=== PATIENT | male | born 1985 | race Caucasian/White ===

== ENCOUNTER 2023-02-21 13:42 | Emergency (ER) | payer OTHER ==
[2023-02-21 13:53] VITALS: TEMP 98
[2023-02-21] MEDS ORDERED: BACITRACIN OINT 1 EACH PACKET TOPICAL ONE (14:00)
[2023-02-21] MEDS ORDERED: DIPH,PERTUS(ACELL)TETVAC-LF 0.5 ML VIAL IM ONE (14:00)
[2023-02-21] MEDS ORDERED: LIDOCAINE 1% INJ 10MG/ML (20 ML MDV) SQ ONE (14:00)
--- NOTE | 2023-02-21 14:03 | ED ---
Wound/Laceration HPI - General Chief Complaint: Wound/Laceration Stated Complaint: finger laceration left hand Time Seen by Provider: 02/21/23 13:49 Source: patient, RN notes reviewed Mode of arrival: ambulatory Limitations: no limitations - History of Present Illness Initial Comments: Patient is a 37-year-old male presenting to the ER with chief complaint of finger laceration. Patient states he was doing work on his house and accidentally cut his finger with his pocket knife. Patient denies any limited range of motion or paresthesias. Patient's tetanus status is unknown. Patient denies any other injuries. - Related Data Allergies Allergy/AdvReac Type Severity Reaction Status Date / Time No Known Allergies Allergy Verified 02/21/23 13:47 Review of Systems ROS Statement: Those systems with pertinent positive or pertinent negative responses have been documented in the HPI. ROS Other: All systems not noted in ROS Statement are negative. Past Medical History Past Medical History: No Reported History History of Any Multi-Drug Resistant Organisms: None Reported Past Surgical History: No Surgical Hx Reported Past Psychological History: No Psychological Hx Reported Smoking Status: Never smoker Past Alcohol Use History: Occasional Past Drug Use History: None Reported General Exam Limitations: no limitations General appearance: alert, in no apparent distress Respiratory exam: Present: normal lung sounds bilaterally. Absent: respiratory distress, wheezes, rales, rhonchi, stridor Cardiovascular Exam: Present: regular rate, normal rhythm, normal heart sounds. Absent: systolic murmur, diastolic murmur, rubs, gallop, clicks Neurological exam: Present: alert, oriented X3, CN II-XII intact Psychiatric exam: Present: normal affect, normal mood Skin exam: Present: other (1 cm laceration noted to left thumb. 2 cm laceration on left second finger. Full ROM of digits. sensation intact. 2+ left radial pulse.) Course Vital Signs 02/21/23 13:45 Temperature 98 F Pulse Rate 58 L Respiratory 20 Rate Blood Pressure 143/89 O2 Sat by Pulse 99 Oximetry Procedures - Laceration Laceration #1 Consent Obtained: verbal consent Indication: laceration Site: hand Size (cm): 2 Description: linear Depth: simple, single layer Anesthetic Used: lidocaine 1% Anesthesia Technique: local infiltration Amount (mls): 3 Pre-repair: wound explored, irrigated extensively, deep structures intact Type of Sutures: nylon Size of Sutures: 4-0 Number of Sutures: 4 Technique: simple, interrupted Patient Tolerated Procedure: well, no complications Laceration #2 Consent Obtained: verbal consent Indication: laceration Site: hand Size (cm): 1 Description: linear Depth: simple, single layer Anesthetic Used: lidocaine 1% Anesthesia Technique: local infiltration Amount (mls): 2 Pre-repair: wound explored, irrigated extensively, deep structures intact Type of Sutures: nylon Size of Sutures: 4-0 Number of Sutures: 1 Technique: simple, interrupted Patient Tolerated Procedure: well, no complications Medical Decision Making - Medical Decision Making Was pt. sent in by a medical professional or institution (ARABELLA Hernandez, RAIL SWITCH OPERATOR, urgent care, hospital, or fpc...) When possible be specific @ -No Did you speak to anyone other than the patient for history (EMS, parent, family, police, friend...)? What history was obtained from this source @ -No Did you review nursing and triage notes (agree or disagree)? Why? @ -I reviewed and agree with nursing and triage notes Were old charts reviewed (outside hosp., previous admission, EMS record, old EKG, old radiological studies, urgent care reports/EKG's, fpc records)? Report findings @ -No old charts were reviewed Differential Diagnosis (chest pain, altered mental status, abdominal pain women, abdominal pain men, vaginal bleeding, weakness, fever, dyspnea, syncope, headache, dizziness, GI bleed, back pain, seizure, CVA, palpatations, mental health, musculoskeletal)? @ -Laceration, abrasion, fracture, contusion EKG interpreted by me (3pts min.). @ -None X-rays interpreted by me (1pt min.). @ -Left finger x-rays are negative for acute osseous abnormalities. CT interpreted by me (1pt min.). @ -None done U/S interpreted by me (1pt. min.). @ -None done What testing was considered but not performed or refused? (CT, X-rays, U/S, labs)? Why? @ -None What meds were considered but not given or refused? Why? @ -None Did you discuss the management of the patient with other professionals (professionals i.e. ARABELLA Hernandez, RAIL SWITCH OPERATOR, lab, RT, psych nurse, social and political studies professor, railway signalling engineer, teacher, protection officer, case mgr)? Give summary @ -No Was smoking cessation discussed for >3mins.? @ -No Was critical care preformed (if so, how long)? @ -No Were there social determinants of health that impacted care today? How? (Homelessness, low income, unemployed, alcoholism, drug addiction, transportation, low edu. Level, literacy, decrease access to med. care, half-way, rehab)? @ -No Was there de-escalation of care discussed even if they declined (Discuss DNR or withdrawal of care, Hospice)? DNR status @ -No What co-morbidities impacted this encounter? (DM, HTN, Smoking, COPD, CAD, Cancer, CVA, ARF, Chemo, Hep., AIDS, mental health diagnosis, sleep apnea, morbid obesity)? @ -None Was patient admitted / discharged? Hospital course, mention meds given and route, prescriptions, significant lab abnormalities, going to OR and other pertinent info. @ -Discharged Patient is a 37-year-old male presented ER with chief complaint of lacerations. Upon examination, patient's vitals are stable. Physical exam is significant for left thumb 1 cm laceration and left second digit 2 cm laceration. Patient had full range of motion and was neurovascularly intact. X-rays obtained of left fingers were negative for acute osseous abnormalities. Patient received tetanus vaccination. Lacerations were numbed using lidocaine and sutured closed with 4 simple interrupted sutures. Patient tolerated procedure well. I discussed with patient to keep area clean and dry. I advised him to use soap and water to clean daily and to monitor for signs of infection. I advised patient to have sutures removed in the next 7-10 days. Return parameters were discussed. Patient be discharged in stable condition with follow-up to PCP. Patient expressed understanding and agreement with care plan. Undiagnosed new problem with uncertain prognosis? @ -No Drug Therapy requiring intensive monitoring for toxicity (Heparin, Nitro, Insulin, Cardizem)? @ -No Were any procedures done? @ -No Diagnosis/symptom? @ -Laceration Acute, or Chronic, or Acute on Chronic? @ -Acute Uncomplicated (without systemic symptoms) or Complicated (systemic symptoms)? @ -Uncomplicated Side effects of treatment? @ -No Exacerbation, Progression, or Severe Exacerbation? @ -No Poses a threat to life or bodily function? How? (Chest pain, [place], [place], pneumonia, PE, COPD, DKA, ARF, appy, cholecystitis, CVA, Diverticulitis, Homicidal, Suicida l, threat to staff... and all critical care pts) @ -No - Radiology Data Radiology results: report reviewed, image reviewed Disposition Clinical Impression: Laceration Disposition: HOME SELF-CARE Condition: Stable Additional Instructions: Please have sutures removed in the next 7-10 days. Please monitor for any increasing redness, swelling, drainage. Please keep area dry and clean with soap and water daily. Please return to the Emergency Department if symptoms worsen or any other concerns. Is patient prescribed a controlled substance at d/c from ED?: No Referrals: Yenny Avendano DO [Primary Care Provider] - 1-2 days Time of Disposition: 15:04
--- NOTE | 2023-02-21 14:31 | XR ---
Left thumb and index finger. HISTORY: First and second digit lacerations. COMPARISON: None. TECHNIQUE: 3 views of the first and second digits of the left hand were obtained. FINDINGS: There are no osseous abnormalities. There is no fracture or dislocation. There is no radiopaque forei gn body or abnormal soft tissue gas. IMPRESSION: No significant abnormality seen.
[2023-02-21 15:44] VITALS: BP 146/92; PULSE 60; RESP 16
== END 2023-02-21 15:36 | disposition home or self-care (01) ==
LOC: EC 13:42
DX: S61.211S Laceration without foreign body of left index finger without damage to nail, sequela (principal); S61.012A Laceration without foreign body of left thumb without damage to nail, initial encounter; Z23 Encounter for immunization; W26.0XXA Contact with knife, initial encounter; Y92.009 Unspecified place in unspecified non-institutional (private) residence as the place of occurrence of the external cause
CPT/HCPCS: 73140; 90715; 12002; 99283; 90471; J2001

== ENCOUNTER 2023-06-01 05:19 | Emergency (ER) | payer OTHER ==
[2023-06-01 05:31] VITALS: RESP 18
[2023-06-01] MEDS: IBUPROFEN 800 MG TAB PO STA (05:50)
[2023-06-01] MEDS: ACETAMINOPHEN TAB 500 MG TAB PO STA (06:07)
--- NOTE | 2023-06-01 06:28 | ED ---
Back Pain HPI - General Chief Complaint: Back Pain/Injury Stated Complaint: headache fever back pain rt leg pain Time Seen by Provider: 06/01/23 05:57 Source: patient, RN notes reviewed Mode of arrival: ambulatory Limitations: no limitations - History of Present Illness Initial Comments: This is a 37-year-old male who presents to the emergency department for back pain. States that this started 3 days ago. It is in the right lower back with radiation around to the hip. Pain is worse with movement and to the touch. Denies any injuries, but states that he does do a lot of bending and lifting at work. He had a similar but less painful issue a few months ago and saw a chiropractor. Pain improved to some extent afterwards before it became severe 3 days ago. Denies any loss of bowel/bladder control or saddle anesthesia. Also denies any abdominal pain, nausea, or vomiting. He has been taking ibuprofen and Tylenol and using IcyHot without relief in symptoms. Last took Tylenol at 4am. Patient noted to have an elevated temperature on arrival. Reports a headache but denies any URI symptoms. MD Complaint: back pain - Related Data Previous Rx's Medication Instructions Recorded Lidocaine 5% Patch [Lidoderm 5% 1 patch TOPICAL DAILY PRN #30 patch 06/01/23 Patch] methocarbamoL [Robaxin-750] 1,500 mg PO TID PRN #30 tab 06/01/23 predniSONE 50 mg PO DAILY 5 Days #5 tab 06/01/23 Allergies Allergy/AdvReac Type Severity Reaction Status Date / Time No Known Allergies Allergy Verified 06/01/23 05:28 Review of Systems ROS Statement: Those systems with pertinent positive or pertinent negative responses have been documented in the HPI. ROS Other: All systems not noted in ROS Statement are negative. Past Medical History Past Medical History: No Reported History History of Any Multi-Drug Resistant Organisms: None Reported Past Surgical History: No Surgical Hx Reported Past Psychological History: No Psychological Hx Reported Smoking Status: Never smoker Past Alcohol Use History: Occasional Past Drug Use History: None Reported General Exam Limitations: no limitations General appearance: alert, in no apparent distress Head exam: Present: atraumatic, normocephalic, normal inspection Respiratory exam: Present: normal lung sounds bilaterally. Absent: respiratory distress, wheezes, rales, rhonchi, stridor Cardiovascular Exam: Present: regular rate, normal rhythm, normal heart sounds. Absent: systolic murmur, diastolic murmur, rubs, gallop, clicks GI/Abdominal exam: Present: soft, normal bowel sounds. Absent: distended, tenderness, guarding, rebound, rigid Extremities exam: Present: other (Tenderness to palpation over the right greater trochanter. ) Back exam: Present: other (Tenderness to palpation over the right lower back). Absent: CVA tenderness (R), CVA tenderness (L) Neurological exam: Present: alert, oriented X3, CN II-XII intact Psychiatric exam: Present: normal affect, normal mood Skin exam: Present: warm, dry, intact, normal color. Absent: rash Course Vital Signs 06/01/23 06/01/23 06/01/23 05:26 06:48 09:21 Temperature 100.1 F H 98.5 F 98.8 F Pulse Rate 80 59 L Respiratory 18 18 Rate Blood Pressure 146/95 130/82 O2 Sat by Pulse 98 97 Oximetry Medical Decision Making - Medical Decision Making This is a 37 year old male who presents to the emergency department for back pain. Was pt. sent in by a medical professional or institution? @ -No Did you speak to anyone other than the patient for history? @ -No Did you review nursing and triage notes? @ -Yes, and I agree, it is accurate with regards to the patient's symptoms. Were old charts reviewed? @ -No Differential Diagnosis? @ -Differential Back Pain: Strain, zoster, cauda equina syndrome, epidural abscess, vertebral osteomyelit is, discitis, fracture, subluxation, disc herniation, DJD, spinal stenosis, dissection, AAA, pancreatitis, peptic ulcer disease, pyelonephritis, kidney stone, this is not meant to be an all-inclusive list. EKG interpreted by me (3pts min.)? @ -Not obtained X-rays interpreted by me (1pt min.)? @ -X-ray of the right hip and lumbar spine obtained. My interpretation of the right hip x-ray identifies no acute fracture. My interpretation of the lumbar spine x-ray identifies degenerative changes. CT interpreted by me (1pt min.)? @ -CT scan of the lumbar spine obtained. My interpretation identifies spinal canal stenosis. U/S interpreted by me (1pt. min.)? @ -Not obtained What testing was considered but not performed? (CT, X-rays, U/S, labs)? Why? @ -None What meds were considered but not given? Why? @ -None Did you discuss the management of the patient with other professionals? @ -No Did you reconcile home meds? @ -No Was smoking cessation discussed for >3mins.? @ -No Was critical care preformed (if so, how long)? @ -No Were there social determinants of health that impacted care today? How? (Homelessness, low income, unemployed, alcoholism, drug addiction, transportation, low edu. Level, literacy, decrease access to med. care, long-term, rehab)? @ -No Was there de-escalation of care discussed even if they declined? (Discuss DNR or withdrawal of care, Hospice)? @ -No What co-morbidities impacted this encounter? (DM, HTN, Smoking, COPD, CAD, Cancer, CVA, Hep., AIDS, mental health diagnosis, sleep apnea, morbid obesity)? @ -None Was patient admitted / discharged? @ -Discharged. Patient's temperature was 100.1 F on arrival. He had taken Tylenol 2 hours before coming in. He was also exquisitely tender on exam. We started with x-rays of the lumbar spine and right hip. X-ray of the right hip was unremarkable. However, x-ray of the lumbar spine demonstrated moderate to severe disc space narrowing with vacuum disc space phenomenon. While the vacuum disc space phenomenon can be related to degenerative changes, given the fever with nontraumatic back pain and x-ray findings, we evaluated for any potential cause of infection contributing to the intervertebral air. Lab work demonstrates mild leukocytosis of 12.1. Lactic acid negative. CT scan of the thoracic spine demonstrates chronic bilateral L5 pars defects with associated degenerative changes at L5-S1 resulting in moderate to severe bilateral foraminal stenosis and mild to moderate spinal canal stenosis. Discussed with the patient that this level of degeneration and stenosis is concerning in his age. His symptoms were controlled in the emergency department and he was given a prescription for prednisone, Robaxin, and lidocaine patches. He was also given information for follow-up with orthopedics regarding the abnormal CT. Patient discharged home in stable condition. Undiagnosed new problem with uncertain prognosis? @ -None Drug Therapy requiring intensive monitoring for toxicity (Heparin, Nitro, Insuli n, Cardizem)? @ -None Were any procedures done? @ -None Diagnosis/symptom? @ -Lower back pain, DDD, spinal canal stenosis Acute, or Chronic, or Acute on Chronic? @ -Acute Uncomplicated (without systemic symptoms) or Complicated (systemic symptoms)? @ -Uncomplicated Side effects of treatment? @ -None Exacerbation, Progression, or Severe Exacerbation] @ -Not applicable Poses a threat to life or bodily function? @ -Yes, the pain may impact his ability to function. Return precautions reviewed in depth, the patient is instructed to return to the emergency department with any new, worsening, or concerning symptoms. Patient verbalized understanding. This case was discussed in detail with the attending ED physician, Dr. Silva. Presentation, findings, and treatment plan discussed in detail as well. - Lab Data Result diagrams: 06/01/23 06:44 06/01/23 06:44 Lab Results 06/01/23 06/01/23 06/01/23 Range/Units 05:52 06:44 06:44 WBC 12.1 H (3.8-10.6) k/uL RBC 5.30 (4.30-5.90) m/uL Hgb 15.7 (13.0-17.5) gm/dL Hct 46.6 (39.0-53.0) % MCV 88.0 (80.0-100.0) fL MCH 29.5 (25.0-35.0) pg MCHC 33.6 (31.0-37.0) g/dL RDW 13.1 (11.5-15.5) % Plt Count 265 (150-450) k/uL MPV 8.2 Neutrophils % 77 % Lymphocytes % 15 % Monocytes % 5 % Eosinophils % 1 % Basophils % 1 % Neutrophils # 9.3 H (1.3-7.7) k/uL Lymphocytes # 1.8 (1.0-4.8) k/uL Monocytes # 0.6 (0-1.0) k/uL Eosinophils # 0.2 (0-0.7) k/uL Basophils # 0.1 (0-0.2) k/uL Sodium 141 (137-145) mmol/L Potassium 3.7 (3.5-5.1) mmol/L Chloride 107 (98-107) mmol/L Carbon Dioxide 23 (22-30) mmol/L Anion Gap 11 mmol/L BUN 10 (9-20) mg/dL Creatinine 0.88 (0.66-1.25) mg/dL Est GFR (CKD-EPI)AfAm >90 (>60 ml/min/1.73 sqM) Est GFR (CKD-EPI)NonAf >90 (>60 ml/min/1.73 sqM) Glucose 108 H (74-99) mg/dL Plasma Lactic Acid Eliazar (0.7-2.0) mmol/L Calcium 9.4 (8.4-10.2) mg/dL Total Bilirubin 0.9 (0.2-1.3) mg/dL AST 63 H (17-59) U/L ALT 88 H (4-49) U/L Alkaline Phosphatase 107 (38-126) U/L C-Reactive Protein 7.0 H (<1.0) mg/dL Total Protein 7.4 (6.3-8.2) g/dL Albumin 4.3 (3.5-5.0) g/dL Influenza Type A (PCR) Not Detected (Not Detectd) Influenza Type B (PCR) Not Detected (Not Detectd) RSV (PCR) Not Detected (Not Detectd) SARS-CoV-2 (PCR) Not Detected (Not Detectd) 06/01/23 Range/Units 06:44 WBC (3.8-10.6) k/uL RBC (4.30-5.90) m/uL Hgb (13.0-17.5) gm/dL Hct (39.0-53.0) % MCV (80.0-100.0) fL MCH (25.0-35.0) pg MCHC (31.0-37.0) g/dL RDW (11.5-15.5) % Plt Count (150-450) k/uL MPV Neutrophils % % Lymphocytes % % Monocytes % % Eosinophils % % Basophils % % Neutrophils # (1.3-7.7) k/uL Lymphocytes # (1.0-4.8) k/uL Monocytes # (0-1.0) k/uL Eosinophils # (0-0.7) k/uL Basophils # (0-0.2) k/uL Sodium (137-145) mmol/L Potassium (3.5-5.1) mmol/L Chloride (98-107) mmol/L Carbon Dioxide (22-30) mmol/L Anion Gap mmol/L BUN (9-20) mg/dL Creatinine (0.66-1.25) mg/dL Est GFR (CKD-EPI)AfAm (>60 ml/min/1.73 sqM) Est GFR (CKD-EPI)NonAf (>60 ml/min/1.73 sqM) Glucose (74-99) mg/dL Plasma Lactic Acid Eliazar 1.6 (0.7-2.0) mmol/L Calcium (8.4-10.2) mg/dL Total Bilirubin (0.2-1.3) mg/dL AST (17-59) U/L ALT (4-49) U/L Alkaline Phosphatase (38-126) U/L C-Reactive Protein (<1.0) mg/dL Total Protein (6.3-8.2) g/dL Albumin (3.5-5.0) g/dL Influenza Type A (PCR) (Not Detectd) Influenza Type B (PCR) (Not Detectd) RSV (PCR) (Not Detectd) SARS-CoV-2 (PCR) (Not Detectd) - Radiology Data Radiology results: report reviewed, image reviewed Disposition Clinical Impression: Foraminal stenosis of lumbar region, Lumbar nerve root impingement Disposition: HOME SELF-CARE Instructions (If sedation given, give patient instructions): Low Back Strain (ED), Acute Low Back Pain (ED), Lumbar Radiculopathy (ED) Additional Instructions: Return to the emergency department with any new, worsening, or concerning symptoms. Take the prednisone daily for 5 days. Take the Robaxin as 1 to 2 tablets up to 3-4 times daily. Be aware that this may make you drowsy. You can apply the lidocaine patches daily. Follow up with your primary care provider in 1-2 days. Contact the orthopedic providers listed below for a follow up appointment regarding the severe foraminal stenosis. Prescriptions: Lidocaine 5% Patch [Lidoderm 5% Patch] 1 patch TOPICAL DAILY PRN #30 patch PRN Reason: Pain predniSONE 50 mg PO DAILY 5 Days #5 tab methocarbamoL [Robaxin-750] 1,500 mg PO TID PRN #30 tab PRN Reason: Pain Is patient prescribed a controlled substance at d/c from ED?: No Referrals: Shlomo Jin DO [Doctor of Osteopathic Medicine] - 1-2 days Yenny Avendano DO [Primary Care Provider] - 1-2 days Thomas Arteaga DO [Doctor of Osteopathic Medicine] - 1-2 days
[2023-06-01] MEDS: DEXAMETHASONE SOD PHOSPHATE 10 MG/ML 1 ML VIAL IM STA (06:30)
[2023-06-01] MEDS: LIDOCAINE 4% PATCH TOPICAL ONE (06:30)
[2023-06-01] MEDS: ORPHENADRINE 30 MG/ML 2 ML VIAL IM STA (06:30)
--- NOTE | 2023-06-01 06:32 | XR ---
EXAMINATION TYPE: XR Hip Complete RT DATE OF EXAM: 06/01/2023 CLINICAL HISTORY: Pain TECHNIQUE: AP and frogleg views of the right hip are obtained. COMPARISON: None. FINDINGS: There is no acute fracture/dislocation evident in the right hip. Mild axial joint space lo ss. Femoral head shape is maintained. Overlying soft tissue is unremarkable. IMPRESSION: As above.
--- NOTE | 2023-06-01 06:33 | XR ---
EXAMINATION TYPE: XR lumbar spine 2 or 3V DATE OF EXAM: 06/01/2023 CLINICAL HISTORY: Pain TECHNIQUE: Frontal and lateral images of the lumbar spine are obtained. COMPARISON: None FINDINGS: There are 5 lumbar type vertebral bodies identified. The lumbar spine shows satisfactory alignment without evidence of acute fracture or dislocation. Moderate to severe disc space narrowing with vacuum disc phenomenon and moderate spurring at L5-S1 level otherwise vertebral body heights and disk space heights are within normal limits. The overlying soft tissue appears unremarkable. IMPRESSION: As above.
[2023-06-01 07:26] LABS: ALT 88 U/L (4-49); AST 63 U/L (17-59); African American GFR (CKD) >90 (>60 ml/min/1.73 sqM); Albumin 4.3 g/dL (3.5-5.0); Alkaline Phosphatase 107 U/L (38-126); Anion Gap 11 mmol/L; Blood Urea Nitrogen 10 mg/dL (9-20); Calcium 9.4 mg/dL (8.4-10.2); Carbon Dioxide 23 mmol/L (22-30); Chloride 107 mmol/L (98-107); Glucose 108 mg/dL (74-99); Non-African American GFR(CKD) >90 (>60 ml/min/1.73 sqM); Potassium 3.7 mmol/L (3.5-5.1); Sodium 141 mmol/L (137-145); Total Bilirubin 0.9 mg/dL (0.2-1.3); Total Protein 7.4 g/dL (6.3-8.2)
[2023-06-01 07:38] LABS: Basophils # (A) 0.1 k/uL (0-0.2); Basophils % (A) 1 %; Eosinophils # (A) 0.2 k/uL (0-0.7); Eosinophils % (A) 1 %; HCT 46.6 % (39.0-53.0); HGB 15.7 gm/dL (13.0-17.5); Lymphocytes # (A) 1.8 k/uL (1.0-4.8); Lymphocytes % (A) 15 %; MCH 29.5 pg (25.0-35.0); MCHC 33.6 g/dL (31.0-37.0); Mean Platelet Volume 8.2; Monocytes # (A) 0.6 k/uL (0-1.0); Monocytes % (A) 5 %; Neutrophils # (A) 9.3 k/uL (1.3-7.7); Neutrophils % (A) 77 %; Platelet Count 265 k/uL (150-450); RDW 13.1 % (11.5-15.5); WBC 12.1 k/uL (3.8-10.6)
--- NOTE | 2023-06-01 08:42 | CT ---
EXAMINATION TYPE: CT lumbar spine w con CT DLP: 774.4 mGycm, Automated exposure control for dose reduction was used. DATE OF EXAM: 06/01/2023 7:56 AM COMPARISON: Lumbar radiographs 06/01/2023 6:25 AM. CLINICAL INDICATION:Male, 37 years old with history of Low back pain, intervertebral gas on x-ray, fe greg; PHH, Low back pain, intervertebral gas on x-ray, fever TECHNIQUE: Multiple axial images were obtained from the midportion of T11 through the sacroiliac jasper nts. Soft tissue and bone windows in coronal and sagittal planes were obtained and reviewed. 3-D ref ormats of the bones were created on a separate workstation and submitted for review. Contrast used:100 mL of Isovue 300 with IV Contrast, none. Oral contrast used: none. FINDINGS: Alignment: There are 5 lumbar type vertebral bodies. Trace degenerative anterolisthesis of L5 on S1, otherwise normal alignment. Bone: Normal mineralization. No lytic/blastic lesion or osseous destructive process. No acute fractur e identified. There is minimal vertebral body height loss with anterior downsloping along the superio r endplate T12, chronic in appearance without fracture lucency seen. Discs, canal and neural foramina: No significant degenerative changes are suggested at the upper lumbar levels. Spinal canal and neurof oramina appear patent. L4-L5, there is mild posterior disc bulging, mild/moderate facet arthrosis and ligamentum flavum thic kening. Moderate circumferential canal stenosis and bilateral neuroforaminal stenosis. L5-S1, there are chronic bilateral pars interarticularis defects of L5. Significant disc space narrow ing with vacuum disc phenomenon (a common degenerative finding) and moderate-sized marginal osteophyt es. Posterior disc osteophyte complex in combination with mild/moderate facet arthrosis causes modera te to severe bilateral neural foraminal stenosis, and exiting nerve root impingement cannot be exclud ed. There is mild to moderate spinal canal stenosis. The included upper sacrum and iliac bones are unremarkable. Included paraspinous soft tissues show no significant abnormality. IMPRESSION: 1. No evidence of acute fracture or other acute abnormality in the lumbar spine. 2. Chronic bilateral L5 pars defects with associated degenerative changes at L5-S1 resulting in moder ate to severe bilateral neural foraminal stenoses and mild to moderate spinal canal stenosis.
[2023-06-01] MEDS: ACET/COD 300 MG/30 MG STARTER PACK 6 TAB BTL PO STA (09:17)
[2023-06-01] MEDS: HYDROmorphone 1 MG/ML 1 ML SYRINGE IVP STA (09:18)
[2023-06-01] MEDS: KETOROLAC 15 MG/ML 1 ML VIAL IVP STA (09:18)
[2023-06-01 09:42] VITALS: BP 130/82; PULSE 59; TEMP 98.8
== END 2023-06-01 09:27 | disposition home or self-care (01) ==
LOC: EC 05:19
DX: M48.061 Spinal stenosis, lumbar region without neurogenic claudication (principal)
CPT/HCPCS: 99284; 96374; 96375; 96372 ×2; 36415; 80053; 85652; 83605; 85025; 86140; 87636; 72100; 73502; 72132; J1100; J2360; J1170; J1885; Q9967